=== PATIENT | male | born 1980 | race Caucasian/White ===

== ENCOUNTER 2016-10-02 18:55 | Emergency (ER) | payer MEDICARE ==
[2013-05-09 07:33] VITALS: BMI 26.3
[~2016-10-02 18:55] MED LIST: ABILIFY2 MG; CELEXA20 MG PO; DESYREL50 MG PO; MORPHINE SULFAT15 M3; NEURONTIN 300300 MG PO; OXYCONTIN15 MG PO
== END 2016-10-02 22:15 | disposition home or self-care (01) ==
LOC: D.ER 18:55
DX: M54.2 Cervicalgia (principal); M84.48XS Pathological fracture, other site, sequela; S06.0X0A Concussion without loss of consciousness, initial encounter; V43.52XA Car driver injured in collision with other type car in traffic accident, initial encounter; R51 Headache

== ENCOUNTER 2016-11-27 00:08 | Emergency (ER) | payer MEDICARE ==
[2013-05-09 07:33] VITALS: BMI 26.3
[2016-11-27 01:54] LABS: APPEARANCE CLEAR (CLEAR); BILIRUBIN NEGATIVE (NEGATIVE); COLOR YELLOW (YELLOW); GLUCOSE NEGATIVE (NEGATIVE); KETONE NEGATIVE (NEGATIVE); LEUKOCYTE ESTERASE NEGATIVE (NEGATIVE); NITRITE NEGATIVE (NEGATIVE); PROTEIN NEGATIVE (NEGATIVE); UROBILINOGEN NORMAL (NORMAL)
== END 2016-11-27 02:35 | disposition home or self-care (01) ==
LOC: D.ER 00:08
PROVIDERS: Family Medicine
DX: T38.0X5A Adverse effect of glucocorticoids and synthetic analogues, initial encounter (principal); Y92.89 Other specified places as the place of occurrence of the external cause; R61 Generalized hyperhidrosis; R31.9 Hematuria, unspecified

== ENCOUNTER 2017-04-16 01:47 | Emergency (ER) | payer MEDICARE ==
[2013-05-09 07:33] VITALS: BMI 26.3
[2017-04-16 02:11] LABS: APPEARANCE CLEAR (CLEAR); BILIRUBIN NEGATIVE (NEGATIVE); COLOR YELLOW (YELLOW); GLUCOSE NEGATIVE (NEGATIVE); KETONE NEGATIVE (NEGATIVE); NITRITE NEGATIVE (NEGATIVE); PROTEIN NEGATIVE (NEGATIVE); SPECIFIC GRAVITY 1.015 (1.005-1.020); UROBILINOGEN NORMAL (NORMAL)
[2017-04-16 02:22] LABS: UDS - AMPHET NEGATIVE QUAL (NEGATIVE); UDS - BARB NEGATIVE QUAL (NEGATIVE); UDS - BENZO NEGATIVE QUAL (NEGATIVE); UDS - COCAINE NEGATIVE QUAL (NEGATIVE); UDS - OPIATE NEGATIVE QUAL (NEGATIVE); UDS - PCP NEGATIVE QUAL (NEGATIVE); UDS - THC NEGATIVE QUAL (NEGATIVE)
[2017-04-16 02:24] LABS: BASOPHILS 0.3 % (0-2); HEMATOCRIT 39.5 % (42.0-54.0); HEMOGLOBIN 13.5 g/dL (13.5-17.5); MCH 30.1 pg (26.0-34.0); MCHC 34.2 g/dL (31.0-37.0); MCV 88.2 fL (80.0-100.0); MEAN PLATELET VOLUME 10.8 fL (7.4-10.4); MONOCYTES 18.9 % (2-11); NEUTROPHILS 68.8 % (40-80); RBC 4.48 10x6/uL (4.20-6.10); RDW 12.1 % (11.5-14.5); WBC 3.8 10x3/uL (4.8-10.8)
[2017-04-16 02:26] LABS: PLATELET COUNT 206 10x3/uL (130-400)
[2017-04-16 02:37] LABS: ALBUMIN 3.4 g/dL (3.4-5.0); ALKALINE PHOSPHATASE 57 U/L (46-116); ALT (SGPT) 23 U/L (10-68); AMYLASE - SERUM 24 U/L (25-115); BILIRUBIN - TOTAL 0.26 mg/dL (0.2-1.3); CALC OSMOLALITY 283 mosm/kg (275-300); CALCIUM 8.6 mg/dL (8.5-10.1); CARBON DIOXIDE 27.2 mmol/L (21.0-32.0); CHLORIDE - SERUM 107 mmol/L (98-107); CREATININE - SERUM 0.8 mg/dL (0.6-1.3); GLUCOSE 103 mg/dL (74-106); LIPASE 109 U/L (73-393); POTASSIUM - SERUM 3.3 mmol/L (3.5-5.1); PROTEIN - SERUM 6.5 g/dL (6.4-8.2); SODIUM 144 mmol/L (136-145); UREA NITROGEN 5 mg/dL (7-18); eGFR NON AFRICAN AMERICAN > 90 mL/min (90-120)
== END 2017-04-16 04:18 | disposition home or self-care (01) ==
LOC: D.ER 01:47
PROVIDERS: Family Medicine
DX: K52.9 Noninfective gastroenteritis and colitis, unspecified (principal)

== ENCOUNTER 2017-06-23 20:30 | Emergency (ER) | payer MEDICARE ==
[2013-05-09 07:33] VITALS: BMI 26.3
== END 2017-06-23 23:35 | disposition home or self-care (01) ==
LOC: D.ER 20:30
DX: N44.03 Torsion of appendix testis (principal); F17.200 Nicotine dependence, unspecified, uncomplicated

== ENCOUNTER → 2017-06-24 15:56 | Outpatient (CLI) | payer MEDICARE ==
[2013-05-09 07:33] VITALS: BMI 26.3
== END | disposition home or self-care (01) ==
LOC: D.US 15:56
DX: N50.82 Scrotal pain (principal)